=== PATIENT | female | born 1960 | race Caucasian/White ===

== ENCOUNTER 2023-07-28 04:16 | Day surgery (SDC) | payer OTHER ==
[2023-07-18 11:17] VITALS: BMI 24.8
[2023-07-28] MEDS ORDERED: ceFAZolin SODIUM 1 GM VIAL ONE ×3 (06:17→13:22)
[2023-07-28] MEDS ORDERED: PHENAZOPYRIDINE HCL 100 MG TABLET (FP) ONE (06:17)
[2023-07-28] MEDS ORDERED: GABAPENTIN 300 MG CAPSULE ONE (06:18)
[2023-07-28] MEDS ORDERED: ACETAMINOPHEN 500 MG TABLET (FP) ONE (06:19)
[2023-07-28] MEDS: PHENAZOPYRIDINE HCL 100 MG TABLET (FP) PO ONE (06:25)
[2023-07-28] MEDS: ACETAMINOPHEN 500 MG TABLET (FP) PO ONE (06:25)
[2023-07-28] MEDS: GABAPENTIN 300 MG CAPSULE PO ONE (06:25)
[2023-07-28] MEDS ORDERED: MIDAZOLAM HCL 2 MG/2 ML SINGLE DOSE VIAL ONE (07:17)
[2023-07-28] MEDS ORDERED: SUCCINYLCHOLINE CHLORIDE 200 MG/10 ML SYRINGE ONE (07:17)
[2023-07-28] MEDS ORDERED: FENTANYL CITRATE/PF 50 MCG/ML VIAL ONE (07:17)
[2023-07-28] MEDS ORDERED: PROPOFOL 20 ML ONE ×2 (07:17→10:38)
[2023-07-28] MEDS ORDERED: ACETAMINOPHEN INJECTION 100 ML IVPB ONE (07:21)
[2023-07-28] MEDS: ceFAZolin SODIUM 1 GM VIAL IVPB ONE (08:00)
[2023-07-28] MEDS ORDERED: KETOROLAC TROMETHAMINE 30 MG/1 ML VIAL ONE (08:14)
[2023-07-28] MEDS ORDERED: SODIUM CHLORIDE 0.9% P/F 10 ML VIAL IJ ONE ×2 (08:14→08:15)
[2023-07-28] MEDS ORDERED: DEXAMETHASONE SOD PHOSPHATE 4 MG/1 ML VIAL ONE (08:14)
[2023-07-28] MEDS ORDERED: LIDOCAINE HCL/PF 2% SDV 5ML VIAL ONE (08:14)
[2023-07-28] MEDS ORDERED: METOCLOPRAMIDE HCL INJECTION 10 MG/2 ML VIAL ONE (08:14)
[2023-07-28] MEDS ORDERED: ONDANSETRON 4 MG/2 ML VIAL ONE (08:14)
[2023-07-28] MEDS ORDERED: HYDROmorphone HCl 2 MG/ML VIAL ONE (08:15)
[2023-07-28] MEDS ORDERED: TRANEXAMIC ACID 1000 MG/10 ML VIAL ONE (08:29)
[2023-07-28] MEDS ORDERED: GLYCOPYRROLATE 0.2 MG/1 ML VIAL ONE (09:38)
[2023-07-28] MEDS ORDERED: VASopressin 20 UNITS/ML VIAL IV ONE (10:37)
[2023-07-28] MEDS ORDERED: oxyCODONE HCL 5 MG TABLET PO PRN ×2 (12:14)
[2023-07-28] MEDS ORDERED: SIMETHICONE 80 MG TAB.CHEW (FP) PO PRN (12:14)
[2023-07-28] MEDS ORDERED: DOCUSATE SODIUM 100 MG CAPSULE (FP) PO PRN (12:14)
[2023-07-28] MEDS ORDERED: IBUPROFEN 800 MG/8 ML IJ IVPB PRN (12:14)
[2023-07-28] MEDS ORDERED: BISACODYL 5 MG TABLET.DR (FP) PO PRN (12:14)
[2023-07-28] MEDS ORDERED: ZOLPIDEM TARTRATE 5 MG TABLET PO PRN (12:17)
[2023-07-28] MEDS: ACETAMINOPHEN 325 MG TABLET (FP) PO SCH (12:32)
[2023-07-28] MEDS ORDERED: BENZOCAINE 20% 57 GM BOTTLE TP PRN (12:46)
[2023-07-28] MEDS: CEFAZOLIN 1 GM in DEXTROSE 5%-WATER - 50 ML IVPB SCH (13:38)
[2023-07-28] MEDS: LACTATED RINGERS SOLUTION 1,000 ML IV SCH (14:10)
[2023-07-28 16:11] VITALS: RESP 18
[2023-07-28] MEDS: CEFAZOLIN 2 GM in DEXTROSE 5%-WATER - 100 ML IVPB ONE (16:12)
[2023-07-28] MEDS: ONDANSETRON 4 MG/2 ML VIAL IVPUSH PRN ×2 (17:09→20:40)
[2023-07-28 18:21] LABS: HEMATOCRIT 40.2 % (32.4-45.2); HEMOGLOBIN 13.4 GM/dL (10.7-15.3); MCH 29.2 pg (25.7-33.7); MCHC 33.5 g/dl (32.0-36.0); MEAN CELL VOLUME 87.4 fl (80-96); MEAN PLT VOLUME 8.5 fl (7.5-11.1); PLATELET COUNT 256 10^3/uL (134-434); RDW 13.7 % (11.6-15.6); WHITE BLOOD COUNT 16.9 K/mm3 (4.0-10.0)
[2023-07-28 18:36] LABS: POTASSIUM 3.8 mmol/L (3.5-5.1)
[2023-07-28 18:38] LABS: CALCIUM 8.6 mg/dL (8.5-10.1)
[2023-07-28 18:39] LABS: BLOOD UREA NITROGEN 8.6 mg/dL (7-18)
[2023-07-28 18:42] LABS: CREATININE 0.7 mg/dL (0.55-1.3)
[2023-07-29 07:41] LABS: HEMATOCRIT 37.6 % (32.4-45.2); HEMOGLOBIN 12.7 GM/dL (10.7-15.3); MCH 29.3 pg (25.7-33.7); MCHC 33.8 g/dl (32.0-36.0); MEAN CELL VOLUME 86.8 fl (80-96); MEAN PLT VOLUME 8.5 fl (7.5-11.1); PLATELET COUNT 263 10^3/uL (134-434); RBC 4.33 M/mm3 (3.60-5.2); RDW 13.3 % (11.6-15.6); WHITE BLOOD COUNT 10.6 K/mm3 (4.0-10.0)
[2023-07-29 07:57] LABS: POTASSIUM 3.5 mmol/L (3.5-5.1)
[2023-07-29 08:00] LABS: CALCIUM 8.6 mg/dL (8.5-10.1)
[2023-07-29 08:01] LABS: BLOOD UREA NITROGEN 7.5 mg/dL (7-18)
[2023-07-29 08:03] LABS: CREATININE 0.7 mg/dL (0.55-1.3)
[2023-07-29] MEDS: ENOXAPARIN NA (PORCINE) 40 MG/0.4 ML DISP.SYRIN SQ SCH (09:13)
[2023-07-29 10:36] VITALS: BP 123/73; PULSE 93; TEMP 98
== END 2023-07-29 10:50 | disposition home or self-care (01) ==
LOC: JASUSAT 04:16 → J3W 14:25 → JASUSAT 07-29 10:50
PROVIDERS: ATTEND Obstetrics & Gynecology
PROC: 0UT94ZZ Resection of Uterus, Percutaneous Endoscopic Approach (ICD-10-PCS; principal; 2023-07-28 07:30)
PROC: 0UT74ZZ Resection of Bilateral Fallopian Tubes, Percutaneous Endoscopic Approach (ICD-10-PCS; 2023-07-28 07:30)
PROC: 0JQC0ZZ Repair Pelvic Region Subcutaneous Tissue and Fascia, Open Approach (ICD-10-PCS; 2023-07-28 07:30)
DX: N81.4 Uterovaginal prolapse, unspecified (principal); D25.0 Submucous leiomyoma of uterus; D25.1 Intramural leiomyoma of uterus
CPT/HCPCS: 57250; 58571; S2900; 36415; 80048; 85027; 86850; 86900; 86901; 88302-TC; 88305-TC; 88307-TC; 94760; J0131